=== PATIENT | male | born 1970 | race Caucasian/White ===

== ENCOUNTER 2020-03-05 09:43 | Outpatient (CLI) | payer BC, SELFPAY ==
[2020-03-05 10:02] LABS: Basophils Absolute Auto 0.09 K/mm3 (0.00-0.10); Basophils Percent Auto 0.9 % (0.0-1.0); Eosinophils Absolute Auto 0.27 K/mm3 (0.02-0.50); Eosinophils Percent Auto 2.6 % (1.0-6.0); Hematocrit 47.7 % (40.0-54.0); Immature Granulocyte Absolute 0.05 K/mm3 (0.00-0.00); Immature Granulocyte Percent A 0.5 % (0.0-0.0); Lymphocytes Percent Auto 25.3 % (18.0-42.0); Mean Corpuscular HGB Conc 35.6 g/dL (32.0-36.0); Mean Corpuscular Hemoglobin 31.4 pg (27.0-31.0); Mean Platelet Volume 10.1 fl (8.7-11.0); Monocytes Absolute Auto 0.83 K/mm3 (0.10-0.90); Monocytes Percent Auto 8.1 % (2.0-11.0); Neutrophils Absolute Auto 6.5 K/mm3 (1.7-7.2); Neutrophils Percent Auto 62.6 % (50.0-70.0); Platelet Count Result 357 K/mm3 (150-420); Red Blood Count 5.42 M/mm3 (4.70-6.10); Red Cell Distribution Width 11.9 % (11.6-14.4); White Blood Count 10.3 K/mm3 (4.8-10.8)
[2020-03-05 10:27] LABS: Hemoglobin A1C 10.3 % (<5.7)
[2020-03-05 10:44] LABS: Alanine Aminotransferase 55 U/L (16-63); Albumin Level 4.6 g/dL (3.4-5.0); Alkaline Phosphatase 106 U/L (46-116); Anion Gap 10 mmol/L (8-16); Aspartate Amino Transferase 15 U/L (15-37); Bilirubin,Total 0.4 mg/dL (0.00-1.00); Blood Urea Nitrogen 13 mg/dL (7-18); Calcium 9.4 mg/dL (8.5-10.1); Carbon Dioxide 29 mmol/L (21-32); Chloride 98 mmol/L (98-108); Cholesterol 108 mg/dL (0-200); Creatine Kinase 55 U/L (39-308); Estimated Glomerular Filt Rate > 60; Glucose 344 mg/dL (70-99); HDL Direct 26 mg/dL (40-60); LDL Cholesterol Calculated 4 mg/dL (<130); Osmolality Calculated 298 mOsm/kg (285-295); Potassium 4.2 mmol/L (3.5-5.1); Sodium 137 mmol/L (136-145); Total Protein 8.6 g/dL (6.4-8.2); Triglycerides 392 mg/dL (0-150); Troponin I < 0.02 ng/mL (0.00-0.056)
[2020-03-05 13:29] LABS: Add Urine Microscopic? YES; Appearance Urine Clear (Clear); Bilirubin Urine Negative (Negative); Blood Urine Negative (Negative); Color Urine Yellow (Yellow); Glucose Urine UA 3+ (Negative); Ketones Urine Negative (Negative); Leukocyte Esterase Ur Negative (Negative); Nitrate Urine Negative (Negative); Protein Urine Negative (Negative); Specific Grav Ur >= 1.030 (1.010-1.020); Urobilinogen Urine 0.2 mg/dL (0.2-1.0); pH Urine 5.5 (5.0-8.0)
[2020-03-05 13:37] LABS: Bacteria Urine Trace /hpf; Mucus Urine Few /lpf; RBC Urine 0-2 /hpf (0-2); Squamous Epithelial Cell Urine Occasional /hpf (Few); WBC Urine 0-3 /hpf (0-3)
[2020-03-05 13:40] LABS: Creatinine Urine 110.55 mg/dL (40-278); MALB Creatinine Ratio 38.7 mg/g (0-30); Microalbumin Urine Random 42.8 mg/L
[2020-03-05 14:34] LABS: LDL Cholesterol Direct 36 mg/dL (0-130)
== END 2020-03-05 09:44 | disposition home or self-care (01) ==
PROVIDERS: PCP Family Medicine; Visit Provider Family Medicine
DX: R07.89 Other chest pain (principal); E11.21 Type 2 diabetes mellitus with diabetic nephropathy; I10 Essential (primary) hypertension; R94.31 Abnormal electrocardiogram [ECG] [EKG]; E78.2 Mixed hyperlipidemia
CPT/HCPCS: 36415; 80053; 80061; 81001; 82043; 82550; 82553; 83036; 83721; 84443; 84484; 85025

== ENCOUNTER 2020-04-01 07:23 | Outpatient (CLI) | payer BC, SELFPAY ==
--- NOTE | ~2020-04-01 | NM_ITS ---
EXAMINATION: NM stress w perf spect multi DATE: 04/01/2020 10:45 INDICATION: Chest pain. TECHNIQUE: Rest images were obtained following intravenous administration of 10.2 mCi Tc99m tetrofosm in (IMVUview). The patient performed an exercise activity. At peak exercise, 31.5 mCi Tc99m tetrofosmi n (Myoview) was administered intravenously, and stress images were obtained. Data was reconstructed i nto short axis and horizontal and vertical long axis SPECT images. Gated SPECT images were also obtai zain. COMPARISON: None. FINDINGS: There is no definite reversible or fixed perfusion abnormality to suggest ischemia or infar ction. There is no segmental wall motion abnormality. Left ventricular ejection fraction measures 6 5%. IMPRESSION: 1. No definite ischemia or infarct. 2. Normal left ventricular ejection fraction measuring 65%. Reviewed, dictated and finalized at location A.
--- NOTE | 2020-04-01 07:28 | EST_ITS ---
Patient Info Name: Tenzin Trujillo Age: 49 years : 1970 Gender: Male Ht: 68 in Wt: 210 lbs BSA: 2.17 m2 Technical Quality: Good Exam Date: 04/01/2020 9:51 AM Exam Location: [facility] Stress Patient Status: Outpatient Admit Date: 04/01/2020 Staff Ordering Physician: Luis Moralez DO Attending Provider: Luis Moralez DO Exercise Technologist: Deshawn Dudley RDCS, RT Exercise Physician: Luis Moralez DO Exam Type: CA stress test treadmill w NM Study Info A nuclear stress test was performed. Summary 1. 1. Negative Jarod exercise stress test for ischemic ST changes by ECG criteria. 2. 2. Good functional capacity, achieving 12 METs of workload. 3. 3. Appropriate HR response to exercise. 4. 4. Appropriate HR recovery at 1 minute post exercise. 5. 5. Nuclear scan to follow and salomón be reported separately. Please correlate with it. 6. 6. Patient informed of the above results. Protocol: Jarod Stress ECG Details Stage: REST Duration (min): 1 min : 31 sec Speed (mph): 0.0 Grade (%): 0 HR (bpm): 72 SBP (mmHg): 127 DBP (mmHg): 87 METS: --- Stage: REST Duration (min): 3 min : 48 sec Speed (mph): 0.0 Grade (%): 0 HR (bpm): 77 SBP (mmHg): 127 DBP (mmHg): 87 METS: --- Stage: STAGE 1 Duration (min): 1 min : 0 sec Speed (mph): 1.7 Grade (%): 10 HR (bpm): 98 SBP (mmHg): 127 DBP (mmHg): 87 METS: --- Stage: STAGE 1 Duration (min): 2 min : 0 sec Speed (mph): 1.7 Grade (%): 10 HR (bpm): 104 SBP (mmHg): 127 DBP (mmHg): 87 METS: --- Stage: STAGE 1 Duration (min): 3 min : 0 sec Speed (mph): 1.7 Grade (%): 10 HR (bpm): 105 SBP (mmHg): 150 DBP (mmHg): 87 METS: --- Stage: STAGE 2 Duration (min): 1 min : 0 sec Speed (mph): 2.5 Grade (%): 12 HR (bpm): 114 SBP (mmHg): 150 DBP (mmHg): 87 METS: --- Stage: STAGE 2 Duration (min): 2 min : 0 sec Speed (mph): 2.5 Grade (%): 12 HR (bpm): 119 SBP (mmHg): 166 DBP (mmHg): 71 METS: --- Stage: STAGE 2 Duration (min): 3 min : 0 sec Speed (mph): 2.5 Grade (%): 12 HR (bpm): 122 SBP (mmHg): 166 DBP (mmHg): 71 METS: --- Stage: STAGE 3 Duration (min): 1 min : 0 sec Speed (mph): 3.4 Grade (%): 14 HR (bpm): 130 SBP (mmHg): 178 DBP (mmHg): 79 METS: --- Stage: STAGE 3 Duration (min): 2 min : 0 sec Speed (mph): 3.4 Grade (%): 14 HR (bpm): 138 SBP (mmHg): 178 DBP (mmHg): 79 METS: --- Stage: STAGE 3 Duration (min): 3 min : 0 sec Speed (mph): 3.4 Grade (%): 14 HR (bpm): 141 SBP (mmHg): 195 DBP (mmHg): 74 METS: --- Stage: STAGE 4 Duration (min): 1 min : 0 sec Speed (mph): 4.2 Grade (%): 16 HR (bpm): 151 SBP (mmHg): 195 DBP (mmHg): 74 METS: --- Stage: STAGE 4 Duration (min): 2 min : 0
--- NOTE | 2020-04-01 07:28 | ECHO_ITS ---
Patient Info Name: Tenzin Trujillo Age: 49 years : 1970 Gender: Male Ht: 68 in Wt: 210 lbs BSA: 2.17 m2 HR: 65 bpm BP: 153 / 85 mmHg Technical Quality: Fair Exam Date: 04/01/2020 7:44 AM Exam Location: [facility] Pulmonary Patient Status: Outpatient Admit Date: 04/01/2020 Staff Ordering Physician: Luis Moralez DO Letter Of Credit Document Examiner: Deshawn Dudley RDCS, RT Attending Provider: Luis Moralez DO Referring Physician: Kirt MENDIOLA; Exam Type: CA echo dop color flow w con Study Info Indications R07.9 - Chest pain, unspecified Complete two-dimensional, color flow and Doppler transthoracic echocardiogram is performed with contrast to opacify the left ventricle and to improve the deliniation of the left ventricle endocardial borders. Strain analysis performed. Summary 1. Left ventricular chamber dimension is normal. 2. Definity contrast administered improved wall motion interpretation. 3. Left ventricular systolic function is normal, estimated at 60-65%. 4. There is mildly increased left ventricular wall thickness. 5. The left ventricular diastolic function is normal. 6. E/e' 7 is not elevated. 7. Global longitudinal strain is abnormal at -10.9%. Left Ventricle E/e' 7 is not elevated. Global longitudinal strain is abnormal at -10.9%. Definity contrast administered improved wall motion interpretation. Left ventricular chamber dimension is normal. Left ventricular systolic function is normal, estimated at 60-65%. There is mildly increased left ventricular wall thickness. The left ventricular diastolic function is normal. Right Ventricle Right ventricular chamber dimension is normal. Right ventricular systolic function is normal. Left Atria Left atrial chamber dimension is normal. Right Atria Right atrial chamber dimension is normal. Aortic Valve The aortic valve is trileaflet. There is no aortic valve stenosis. There is no aortic valve regurgitation. Pulmonic Valve There is no pulmonic regurgitation. Mitral Valve There is no mitral valve stenosis. There is no mitral valve regurgitation. Tricuspid Valve There is no tricuspid valve regurgitation. Pericardium/Pleural There is no pericardial effusion. Inferior Vena Cava Normal inferior vena cava with >50% collapse upon inspiration consistent with normal right atrial pressure, 5 mmHg. Aorta The aortic root size at the sinus of Valsalva is normal. Left Ventricular Outflow Tract Name Value Normal LVOT 2D LVOT Diameter 2.05 cm LVOT Doppler LVOT Peak Gradient 3 mmHg LVOT Mean Gradient 2 mmHg LVOT VTI 18.23 cm LVOT VTI/AV VTI Ratio 0.94 LVOT Stroke Volume 60.04 ml LVOT CO 3.93 l/min LVOT CI 1.81 L/min/m2 Mitral Valve Name Value Normal OLIMPIA Sanderson
[2020-04-01] MEDS: PERFLUTREN LIPID MICROSPHERES 1.5 ML VIAL DILUTED TO 10 ML TOTAL VOLUME IV PUSH (08:24)
== END 2020-04-01 07:24 | disposition home or self-care (01) ==
PROVIDERS: PCP Family Medicine; Visit Provider Internal Medicine Cardiovascular Disease
DX: E66.9 Obesity, unspecified (principal)
CPT/HCPCS: 78452; 93017; A9502; C8929

== ENCOUNTER 2022-03-09 11:04 | Emergency (ER) | payer BC, SELFPAY ==
[2022-03-09 11:08] VITALS: BP 138/87; PULSE 84; RESP 20; TEMP 36.6; O2SAT 98
[2022-03-09 11:12] VITALS: BP 154/89; PULSE 82; RESP 18; TEMP 36.4; O2SAT 98
--- NOTE | 2022-03-09 11:19 | ED.SKABFB ---
HPI - Skin/Abscess/Foreign Bdy General Chief complaint: Unspecified Stated complaint: reaction to vaccine Time Seen by Provider: 03/09/22 11:18 Source: patient Mode of arrival: ambulatory Limitations: no limitations History of Present Illness HPI narrative: 51-year-old male with a history of dyslipidemia, diabetes mellitus, seizure disorder related to childhood trauma,anxiety/ depression received Pneumovax 23 along with influenza vaccination on his right deltoid On 03/07/2022. He presents to the ER with -- erythematous swelling over his right lateral arm. -- Tender axillary lymphadenopathy no fever or chills complaint: rash Onset (ago): day(s) ( started 1 day ago) Tetanus up to date: yes Location: RUE ( right arm) Severity: mild Relieving factors: none Exacerbating factors: none Associated symptoms: denies other symptoms Treatments prior to arrival: none Related Data Home Medications Medication Instructions Recorded Confirmed amitriptyline 25 mg tablet 25 mg PO ONCE 03/09/20 03/09/22 bupropion HCl 150 mg 24 hr tablet, 150 mg PO ONCE 03/09/20 03/09/22 extended release irbesartan 150 1 tablet PO DAILY 03/09/20 03/09/22 mg-hydrochlorothiazide 12.5 mg tablet metformin 1,000 mg tablet 1,000 mg PO BID 03/09/20 03/09/22 phenytoin sodium extended 100 mg 100 mg PO BID 03/09/20 03/09/22 capsule sitagliptin 100 mg tablet (Januvia) 100 mg PO DAILY 03/09/20 03/09/22 tadalafil 5 mg tablet (Cialis) 5 mg PO DAILY 03/09/20 03/09/22 Allergies Allergy/AdvReac Type Severity Reaction Status Date / Time hydrochlorothiazide Allergy Unknown erectile Verified 06/08/20 11:09 dysfunction Review of Systems Review of Systems: All systems reviewed & are unremarkable except as noted in HPI and below Constitutional: Constitutional: Reports as per HPI and Reports no additional constitutional complaints Eyes: Eyes: Reports as per HPI and Reports no additional eye complaints ENT: Reports system reviewed and no additional complaints, except as documented and Reports as per HPI Cardiovascular: Cardiovascular: Reports as per HPI and Reports no additional cardiovascular complaints Respiratory: Respiratory: Reports as per HPI and Reports no additional respiratory complaints Gastrointestinal: Gastrointestinal: Reports as per HPI and Reports no additional gastrointestinal complaints Genitourinary: Genitourinary: Reports no additional male genitourinary complaints and Reports as per HPI Musculoskeletal: Musculoskeletal: Reports no additional musculoskeletal complaints and Reports as per HPI Integumentary/Breasts: Skin/Breast: Reports system reviewed and no additional complaints, except as docu, Reports erythema and Reports rash Comments: erythematous rash over his right lateral region. It is warm and tender Neurologic: Reports system reviewed and no additional complaints, except as documented and Reports as per HPI Psychiatric: Psychiatric: Reports no additional psychiatric complaints and Reports as per HPI Endocrine: Endocrine: Reports no additional endocrine complaints and Reports as per HPI Hematologic/Lymphatic: Hematologic/Lymphatic: Reports no additional hematologic/lymphatic complaints and Reports as per HPI Allergic/Immunologic: Allergic/Immunologic: Reports no additional allergic/immunologic complaints and Reports as per HPI PMFSH Past Medical History Medical History Anxiety Chest pain Fatigue Hyperlipidemia Hypertension Type 2 diabetes mellitus Family History Family History Father Family history of coronary artery disease Other Family history of seizure disorder Social History Social History Smoking status: Never smoker Exam Const: General: healthy appearing and no acute distress Nutritional Appearance: well nourished O
[2022-03-09 11:56] LABS: Basophils Absolute Auto 0.06 K/mm3 (0.00-0.10); Basophils Percent Auto 0.5 % (0.0-1.0); Eosinophils Absolute Auto 0.27 K/mm3 (0.02-0.50); Eosinophils Percent Auto 2.2 % (1.0-6.0); Hematocrit 39.3 % (40.0-54.0); Hemoglobin 13.5 g/dL (14.0-18.0); Immature Granulocyte Absolute 0.04 K/mm3 (0.00-0.00); Immature Granulocyte Percent A 0.3 % (0.0-0.0); Lymphocytes Absolute Auto 1.74 K/mm3 (1.10-4.50); Lymphocytes Percent Auto 13.9 % (18.0-42.0); Mean Corpuscular HGB Conc 34.4 g/dL (32.0-36.0); Mean Corpuscular Hemoglobin 30.9 pg (27.0-31.0); Mean Corpuscular Volume 89.9 fL (78.0-102.0); Mean Platelet Volume 9.7 fl (8.7-11.0); Monocytes Absolute Auto 1.07 K/mm3 (0.10-0.90); Monocytes Percent Auto 8.5 % (2.0-11.0); Neutrophils Absolute Auto 9.4 K/mm3 (1.7-7.2); Neutrophils Percent Auto 74.6 % (50.0-70.0); Platelet Count Result 321 K/mm3 (150-420); Red Blood Count 4.37 M/mm3 (4.70-6.10); Red Cell Distribution Width 12.5 % (11.6-14.4); White Blood Count 12.6 K/mm3 (4.8-10.8)
[2022-03-09 12:13] LABS: Anion Gap 9 mmol/L (8-16); Blood Urea Nitrogen 17 mg/dL (7-18); Carbon Dioxide 24 mmol/L (21-32); Chloride 107 mmol/L (98-108); Estimated CRCL calculation 91 ml/min; Estimated Glomerular Filt Rate > 60; Potassium 3.9 mmol/L (3.5-5.1); Sodium 140 mmol/L (136-145)
[2022-03-09 12:14] LABS: Calcium 8.7 mg/dL (8.5-10.1); Glucose 138 mg/dL (70-99); Osmolality Calculated 293 mOsm/kg (285-295)
--- NOTE | 2022-03-09 12:22 | PC.NURSE ---
RIGHT UPPER ARM REDNESS AND SWELLING MARKED WITH A SURGICAL PEN PER DR DEAL.
[2022-03-09 12:46] VITALS: BP 157/91; PULSE 84; RESP 18; TEMP 36.6; O2SAT 97
[2022-03-09 12:50] VITALS: BP 157/91; PULSE 82; RESP 19; TEMP 36.6; O2SAT 99
--- NOTE | 2022-03-15 13:16 | PC.NURSE ---
BLOOD CULTURE RESULTS X2 NO GROWTH AFTER 5 DAYS
== END 2022-03-09 13:03 | disposition home or self-care (01) ==
PROVIDERS: Emergency Provider Internal Medicine Critical Care Medicine; PCP Family Medicine
DX: L03.113 Cellulitis of right upper limb (principal)
CPT/HCPCS: 36415; 80048; 85025; 87040; 99283

== ENCOUNTER → 2022-08-10 16:26 | Outpatient (CLI) | payer OTHER, SELFPAY ==
--- NOTE | ~2022-08-10 | MR_ITS ---
MRI of the left elbow CLINICAL HISTORY: Pain TECHNIQUE: Proton-density and proton-density fat-sat images were acquired in the axial, coronal, and sagittal planes. FINDINGS: Ulnar collateral ligament is intact. Radial collateral ligament and the lateral ulnar colla teral ligament are intact. Common flexor and common extensor tendon origins are intact. No distinct e vidence for medial or lateral epicondylitis. Bone marrow signals are unremarkable. No articular abnormality evident at the elbow. No high-grade ch ondral lesion. No joint effusion. There is mild tendinosis of the distal biceps tendon. Biceps, brachialis, and triceps tendons are oth erwise intact. Visualized muscle signals are unremarkable. No soft tissue mass or fluid collection id entified. No muscle atrophy or edema evident. IMPRESSION: Mild tendinosis of the distal biceps tendon. No other significant findings. Reviewed, dictated and finalized at [facility]. LE HOME SERVICER
== END ==
PROVIDERS: PCP Family Medicine; Visit Provider Physician Assistant
DX: M25.522 Pain in left elbow (principal)
CPT/HCPCS: 73221

== ENCOUNTER 2024-11-04 14:42 | Outpatient (CLI) | payer OTHER, SELFPAY ==
--- NOTE | ~2024-11-04 | XR_ITS ---
EXAMINATION: XR chest 2V 11/04/2024 15:18 INDICATION: Acute cough PROCEDURE: 2 view chest COMPARISON: Comparison to multiple prior studies sequentially, with oldest reviewed study dated 07/04. FINDINGS: The lungs are clear. The cardiomediastinal silhouette is within normal limits. There are no pleural effusions. There is no pneumothorax suspected. IMPRESSION: 1: NO ACUTE CARDIOPULMONARY DISEASE. Reviewed, dictated and finalized at location A.
--- OUTSIDE RECORDS SUMMARY | 2024-11-04 14:58 | XMS_ITS | Referral Summary ---
Author Organization [facility] [address] Address [address] [place] [phone] Care Team Providers Care Produce Associate Name Role Phone Talat Medeiros MD Primary Care Provide r Allergies No known active allergies Medications buPROPion XL (WELLBUTRIN XL) 150 mg 24 hr tablet Take 3 tablets by mouth daily 07/05/2021 Active busPIRone (BUSPAR) 5 mg tablet Take 10 mg by mouth 2 (two) times a day 07/10/2022 Active Jardiance 25 mg tablet Take 25 mg by mouth every morning 07/10/2022 Active fenofibrate (TRIGLIDE) 160 mg tablet Take 1 tablet by mouth daily 08/07/2021 Active irbesartan-hydr ochlorothiazide (AVALIDE) 150-12.5 mg per tablet Take 1 tablet by mouth daily 08/11/2021 Active Januvia 100 mg tablet Take 100 mg by mouth daily 06/25/2022 Active tadalafiL (CIALIS) 5 mg tablet Take 5 mg by mouth daily 06/14/2022 Active Active Problems No known active problems Social History Tobacco Use Types Packs/Day Years Used Date Smoking Tobacco: Never Smokeless Tobacco: Never Tobacco Cessation:Counseling Given: Not Answered Personal Safety Answer Date Recorded Getting School Help Needed Not on file 06/11 Sex and Gender Information Value Date Recorded Sex Assigned at Not on file Legal Sex Male 10:35 AM ONLINE MEDIA DIRECTOR Gender Identity Male 07/20/2022 9:20 AM ONLINE MEDIA DIRECTOR Sexual Orientation Not on file Last Filed Vital Signs Vital Sign Reading Time Taken Comments Blood Pressure 147/89 07/25/2022 9:17 AM ONLINE MEDIA DIRECTOR Pulse 65 07/25/2022 9:17 AM ONLINE MEDIA DIRECTOR Temperature - - Respiratory Rate - - Oxygen Saturation - - Inhaled Oxygen Concentration - - Weight 93 kg (205 lb) 07/25/2022 9:17 AM ONLINE MEDIA DIRECTOR Height 172.7 cm (5' 8) 07/25/2022 9:17 AM ONLINE MEDIA DIRECTOR Body Mass Index 31.17 07/25/2022 9:17 AM ONLINE MEDIA DIRECTOR Plan of Treatment Not on file Insurance Care Teams Produce Associate Relationship Specialty Start Date End Date Talat Medeiros MD [address] [place] [address] PCP - General Family Medicine 07/18/22
--- OUTSIDE RECORDS SUMMARY | 2024-11-04 14:58 | XMS_ITS | Clinical Summary ---
Author Organization [facility] [address] Address [address] [place] [phone] Care Team Providers Care Laminating Machine Offbearer Name Role Phone Talat Medeiros MD Primary [...] Active Active Problems No known active problems Medical History Medical History Date Comments Hypertension Family History Medical History Relation Name Comments Diabetes Other Relation Name Status Comments Other Social History Tobacco Use Types Packs/Day Years Used Date Smoking Tobacco: Never Smokeless Tobacco: Never Tobacco Cessation:Counseling Given: Not Answered Personal Safety Answer Date Recorded Getting School Help Needed Not on file 06/11 Sex and Gender Information Value Date Recorded Sex Assigned at Not on file Legal Sex Male 10:35 AM TENNIS CENTRE MANAGER Gender Identity Male 07/20/2022 9:20 AM TENNIS CENTRE MANAGER Sexual Orientation Not on file Obstetrics History Last Filed Vital Signs Vital Sign Reading Time Taken Comments Blood Pressure 147/89 07/25/2022 9:17 AM TENNIS CENTRE MANAGER Pulse 65 07/25/2022 9:17 AM TENNIS CENTRE MANAGER Temperature - - Respiratory Rate - - Oxygen Saturation - - Inhaled Oxygen Concentration - - Weight 93 kg (205 lb) 07/25/2022 9:17 AM TENNIS CENTRE MANAGER Height 172.7 cm (5' 8) 07/25/2022 9:17 AM TENNIS CENTRE MANAGER Body Mass Index 31.17 07/25/2022 9:17 AM TENNIS CENTRE MANAGER Plan of Treatment Health Maintenance Due Date Last Done Comments Colon Cancer Screening-Colonoscopy 1970 Depression Screening 1969 Hepatitis C Screening 1970 Prostate Cancer Screening-PSA 1969 DTaP/Tdap/Td Vaccine (1 - Tdap) 1980 Hepatitis B Screening 1987 Regular Well Visit/Exam 18-64 1987 Zoster Vaccine (1 of 2) 2019 Influenza Vaccine (Season Ended) 2025 Pneumococcal vaccine <65 Aged Out No longer eligible based on patient's age to complete this topic [facility] Care Teams Laminating Machine Offbearer Relationship Specialty Start Date End Date Talat Medeiros MD [address] [place], [place] [id number] PCP - General Family Medicine 07/18/22
== END 2024-11-04 14:43 | disposition home or self-care (01) ==
LOC: CHSIMG 14:44
PROVIDERS: PCP Family Medicine; Visit Provider Family Medicine
DX: R05.2 Subacute cough (principal)
CPT/HCPCS: 71046

== ENCOUNTER 2024-12-17 09:21 | Outpatient (CLI) | payer OTHER, SELFPAY ==
--- OUTSIDE RECORDS SUMMARY | 2024-12-17 09:43 | XMS_ITS | Clinical Summary ---
Author Organization [facility] Address [address] [place] [id number] Care Team Providers Care Geography Teacher Name Role Phone Talat Medeiros MD Primary Care Provider [phone] Allergies No known active allergies Medications No known medications Social History Tobacco Use Types Packs/Day Years Used Date Smoking Tobacco: Never Smokeless Tobacco: Never Alcohol Use Standard Drinks/Week Comments Not Currently 0 (1 standard drink = 0.6 oz pur e alcohol) Sex and Gender Information Value Date Recorded Sex Assigned at Not on file Legal Sex Male 7:01 PM CDT Gender Identity Not on file Sexual Orientation Not on file Last Filed Vital Signs Vital Sign Reading Time Taken Comments Blood Pressure 160/101 12/31/2020 7:08 PM CDT Pulse 98 12/31/2020 7:08 PM CDT Temperature 36.4 C (97.6 F) 12/31/2020 7:08 PM CDT Respiratory Rate 16 12/31/2020 7:08 PM CDT Oxygen Saturation 96% 12/31/2020 7:08 PM CDT Inhaled Oxygen Concentration - - Weight 97.5 kg (215 lb) 12/31/2020 7:08 PM CDT Height 175.3 cm (5' 9) 12/31/2020 7:08 PM CDT Body Mass Index 31.75 12/31/2020 7:08 PM CDT Plan of Treatment Health Maintenance Due Date Last Done Comments Colorectal Cancer Screening Colonoscopy (10 Years) 1969 Annual Physical 1972 Hepatitis C 1987 DTaP, Tdap and Td Vaccines ( 1 - Tdap) 1988 Hepatitis B Vaccines (1 of 3 - 19+ 3-dose series) 1988 Pneumococcal Vaccine: 50+ Years (1 of 1 - PCV) 2019 Zoster Vaccines (1 of 2) 2019 COVID-19 Vaccine (3 - 2024-2 5 season) 2024 07/29/2020, 07/08/2020 Meningococcal B Vaccine Aged Out No l onger eligible based on patient's age to complete this topic Meningococcal Vaccine Aged Out No varghese calvin eligible based on patient's age to complete this topic RSV Immunizations Under 20 Months Aged Out No longer eligible b ased on patient's age to complete this topic Insurance MEDICARE PART A [facility] Care Teams Geography Teacher Relationship Specialty Start Date End Date Talat Medeiros MD [address] [place] [address] PCP - General FAMILY PRACTICE 12/31/20
--- OUTSIDE RECORDS SUMMARY | 2024-12-17 09:43 | XMS_ITS | Referral Summary ---
Author Organization [facility] [address] Address [address] [place] [phone] Care Team Providers Care Landscaping Specialist Name Role Phone Talat Medeiros MD Primary [...] on file Legal Sex Male 10:35 AM PAYROLL ASSOCIATE Gender Identity Male 07/20/2022 9:20 AM PAYROLL ASSOCIATE Sexual Orientation Not on file Last Filed Vital Signs Vital Sign Reading Time Taken Comments Blood Pressure 147/89 07/25/2022 9:17 AM PAYROLL ASSOCIATE Pulse 65 07/25/2022 9:17 AM PAYROLL ASSOCIATE Temperature - - Respiratory Rate - - Oxygen Saturation - - Inhaled Oxygen Concentration - - Weight 93 kg (205 lb) 07/25/2022 9:17 AM PAYROLL ASSOCIATE Height 172.7 cm (5' 8) 07/25/2022 9:17 AM PAYROLL ASSOCIATE Body Mass Index 31.17 07/25/2022 9:17 AM PAYROLL ASSOCIATE Plan of Treatment Not on file Insurance Care Teams Landscaping Specialist Relationship Specialty Start Date End Date Talat Medeiros MD [address] [place] [address] PCP - General Family Medicine 07/18/22
--- OUTSIDE RECORDS SUMMARY | 2024-12-17 09:43 | XMS_ITS | Clinical Summary ---
Author Organization [facility] [address] Address [address] [place] [phone] Care Team Providers Care Boat Driver Name Role Phone Talat Medeiros MD Primary [...] on file Legal Sex Male 10:35 AM GYROSCOPIC INSTRUMENT TESTER Gender Identity Male 07/20/2022 9:20 AM GYROSCOPIC INSTRUMENT TESTER Sexual Orientation Not on file Obstetrics History Last Filed Vital Signs Vital Sign Reading Time Taken Comments Blood Pressure 147/89 07/25/2022 9:17 AM GYROSCOPIC INSTRUMENT TESTER Pulse 65 07/25/2022 9:17 AM GYROSCOPIC INSTRUMENT TESTER Temperature - - Respiratory Rate - - Oxygen Saturation - - Inhaled Oxygen Concentration - - Weight 93 kg (205 lb) 07/25/2022 9:17 AM GYROSCOPIC INSTRUMENT TESTER Height 172.7 cm (5' 8) 07/25/2022 9:17 AM GYROSCOPIC INSTRUMENT TESTER Body Mass Index 31.17 07/25/2022 9:17 AM GYROSCOPIC INSTRUMENT TESTER Plan of Treatment Health Maintenance Due Date [...] patient's age to complete this topic Insurance [facility] Care Teams Boat Driver Relationship Specialty Start Date End Date Talat Medeiros MD [address] [place], [place] [phone] PCP - General Family Medicine 07/18/22
== END 2024-12-17 09:22 | disposition home or self-care (01) ==
PROVIDERS: PCP Family Medicine; Visit Provider Family Medicine
DX: M25.562 Pain in left knee (principal)
CPT/HCPCS: 73564

== ENCOUNTER 2025-01-15 10:23 | Outpatient (CLI) | payer OTHER, SELFPAY ==
--- NOTE | ~2025-01-15 | XR_ITS ---
EXAMINATION: XR chest 2V 01/15/2025 10:42 INDICATION: Subacute cough PROCEDURE: 2 view chest COMPARISON: 11/04/2024 FINDINGS: The lungs are clear. The cardiomediastinal silhouette is within normal limits. There are no pleural effusions. There is no pneumothorax suspected. IMPRESSION: 1: NO ACUTE CARDIOPULMONARY DISEASE. Reviewed, dictated and finalized at location A.
--- OUTSIDE RECORDS SUMMARY | 2025-01-15 10:40 | XMS_ITS | Clinical Summary ---
Author Organization [facility] [address] Address [address] [place] [phone] Care Team Providers Care Revenue Field Auditor Name Role Phone Talat Medeiros MD Primary [...] on file Legal Sex Male 10:35 AM PIT INSPECTOR Gender Identity Male 07/20/2022 9:20 AM PIT INSPECTOR Sexual Orientation Not on file Obstetrics History Last Filed Vital Signs Vital Sign Reading Time Taken Comments Blood Pressure 147/89 07/25/2022 9:17 AM PIT INSPECTOR Pulse 65 07/25/2022 9:17 AM PIT INSPECTOR Temperature - - Respiratory Rate - - Oxygen Saturation - - Inhaled Oxygen Concentration - - Weight 93 kg (205 lb) 07/25/2022 9:17 AM PIT INSPECTOR Height 172.7 cm (5' 8) 07/25/2022 9:17 AM PIT INSPECTOR Body Mass Index 31.17 07/25/2022 9:17 AM PIT INSPECTOR Plan of Treatment Health Maintenance Due Date Last Done Comments Colon Cancer Screening-Colonoscopy 1969 Depression Screening 1969 Hepatitis C Screening 1969 Prostate Cancer Screening-PSA 1969 DTaP/Tdap/Td Vaccine (1 - Tdap) 1980 Hepatitis B Screening 1987 Regular Well Visit/Exam 18-64 1987 Zoster Vaccine (1 of 2) 2019 Influenza Vaccine (#1) 2025 Pneumococcal vaccine <65 Aged Out No longer eligible based on patient's age to complete this topic [facility] Care Teams Revenue Field Auditor Relationship Specialty Start Date End Date Talat Medeiros MD [address] [place], [place] [phone] PCP - General Family Medicine 07/18/22
--- OUTSIDE RECORDS SUMMARY | 2025-01-15 10:40 | XMS_ITS | Clinical Summary ---
Author Organization [facility] Address [address] [place] [id number] Care Team Providers Care Clinical Nutritionist Name Role Phone Talat Medeiros MD Primary Care Provider [phone] Allergies No known active allergies Medications No [...] complete this topic Insurance MEDICARE PART A [facility] Care Teams Clinical Nutritionist Relationship Specialty Start Date End Date Talat Medeiros MD [address] [place] [address] PCP - General FAMILY PRACTICE 12/31/20
== END 2025-01-15 10:24 | disposition home or self-care (01) ==
LOC: CHSIMG 10:24
PROVIDERS: PCP Family Medicine; Visit Provider Family Medicine
DX: R05.2 Subacute cough (principal)
CPT/HCPCS: 71046